=== PATIENT | female | born 1990 | race African-American/Black ===

== ENCOUNTER 2016-10-12 02:18 | Emergency (ER) | payer OTHER ==
[~2016-10-12] VITALS: Ht 170.2 cm; Wt 84.4 kg
[~2016-10-12 02:18] MED LIST: PRENATAL TABLE1 EAC3 PO
[2016-10-12 04:28] VITALS: BP 126/87
== END 2016-10-12 04:29 | disposition home or self-care (01) ==
LOC: EXP 02:18 → EME 02:18 → EXP 04:29
DX: Z30.44 Encounter for surveillance of vaginal ring hormonal contraceptive device (principal); Z87.891 Personal history of nicotine dependence
CPT/HCPCS: 99281; 99282